=== PATIENT | male | born 1980 | race Caucasian/White ===

== ENCOUNTER → 2016-06-06 | Outpatient (CLI) | payer MEDICAID ==
--- NOTE | 2016-06-06 15:28 | MR ---
EXAMINATION TYPE: MR lumbar spine wo con DATE OF EXAM: 06/06/2016 3:18 PM COMPARISON: NONE HISTORY: Low back pain include T10 through order. Chronic right-sided low back pain per patient. TECHNIQUE: Multiplanar, multisequence imaging of the lumbar spine is performed without IV contrast. FINDINGS: Sagittal images of the lumbar spine show vertebral body heights and alignment to appear sat isfactory. There is disc desiccation with mild disc space narrowing L4-L5 and moderate disc space alverto rowing L5-S1 levels. Increased signal posterior lesions consistent with annular tears is present at t hese levels with small posterior disc herniation seen on sagittal images. The conus medullaris is nor mal in position and signal ending at mid L1 vertebral body level. The bone marrow signal intensity i s within normal limits. No significant spurring is seen. Imaging is performed to mid T9 vertebral bod y level. Visualized lower thoracic spine is unremarkable. Axial images show the T9-T10, T10-T11, T11-T12, T12-L1, L1-L2, L2-L3, and L3-L4 levels all to appear within normal limits. Axial images at the L4-L5 level show broad-based right paracentral disc protrusion mildly effacing an terolateral thecal sac on axial image 10, bilateral neural foramina are patent. Axial images at L5-S1 level shows central disc protrusion but spinal canal is preserved and bilateral neural foramina are patent. No suspicious retroperitoneal pathology is identified.. IMPRESSION: Some multilevel degenerative changes in the lower lumbar spine at L4-L5 and L5-S1 as deta iled above.
== END ==
LOC: RADMRIMAIN 14:05
PROVIDERS: ATTEND Family Medicine
DX: M51.26 Other intervertebral disc displacement, lumbar region (principal); M51.27 Other intervertebral disc displacement, lumbosacral region
CPT/HCPCS: 72148

== ENCOUNTER → 2017-11-20 | Outpatient (CLI) | payer MEDICAID ==
--- NOTE | 2017-11-20 15:48 | US ---
EXAMINATION TYPE: US abdomen limited DATE OF EXAM: 11/20/2017 COMPARISON: NONE CLINICAL HISTORY: R10.31 Right lower quadrant abd pain. EXAM MEASUREMENTS: Liver Length: 16.5 cm Gallbladder Wall: 0.2 cm CBD: 0.5 cm Right Kidney: 10.8 x 4.7 x 5.1 cm Appendix: 0.4 cm Pancreas: Obscured by bowel gas Liver: wnl Gallbladder: wnl Evidence for sonographic Ortiz's sign: No CBD: wnl Right Kidney: No hydronephrosis or masses seen Within the RLQ, there is a probable lymph node visualized measuring 1.7 x 0.7 x 0.8 cm. Tube like str ucture is visualized in the RLQ, possible normal appearing appendix. IMPRESSION: 1. Abdomen ultrasound as visualized appears unremarkable. 2. Right lower quadrant appendix where visualized is normal. 3. There is a lymph node in the right lower quadrant. Consider mesenteric adenitis within the differe ntial.
== END | disposition home or self-care (01) ==
LOC: RADUSWWP 15:00
PROVIDERS: ATTEND Family Medicine
DX: R10.31 Right lower quadrant pain (principal); Z88.8 Allergy status to other drugs, medicaments and biological substances; Z91.048 Other nonmedicinal substance allergy status
CPT/HCPCS: 76705

== ENCOUNTER 2024-05-30 18:40 | Emergency (ER) | payer MEDICAID ==
[2024-05-30 19:05] VITALS: TEMP 98.9
[2024-05-30] MEDS: HYDROmorphone 1 MG/ML 1 ML SYRINGE IM STA ×2 (19:30→20:30)
--- NOTE | 2024-05-30 19:34 | XR ---
EXAMINATION TYPE: XR tibia fibula LT DATE OF EXAM: 05/30/2024 7:31 PM COMPARISON: None CLINICAL INDICATION: Male, 43 years old with history of Injury; PHH, pain TECHNIQUE: XR tibia fibula LT; examined in AP and lateral projections. FINDINGS: No evidence of any acute osseous pathology, joint dislocation, or soft tissue swelling is n oted. IMPRESSION: No evidence of acute fracture. [facility], , 05/30/2024 7:32 PM
--- NOTE | 2024-05-30 19:35 | XR ---
EXAMINATION TYPE: XR ankle complete LT DATE OF EXAM: 05/30/2024 7:27 PM COMPARISON: None CLINICAL INDICATION: Male, 43 years old with history of Injury; PHH, pain TECHNIQUE: XR ankle complete LT; frontal, lateral and oblique projections. FINDINGS: There is no evidence of acute osseous pathology. No evidence of subluxation or dislocation. Kager's fat pad is intact. Soft tissues are within normal limits. No radiopaque foreign bodies are identified . IMPRESSION: No evidence of acute fracture. [facility], , 05/30/2024 7:32 PM
--- NOTE | 2024-05-30 20:03 | ED ---
Lower Extremity Injury HPI - General Chief Complaint: Extremity Injury, Lower Stated Complaint: L leg injury Time Seen by Provider: 05/30/24 19:01 Source: patient, RN notes reviewed Mode of arrival: ambulatory Limitations: no limitations - History of Present Illness Initial Comments: This is a 43-year-old male who presents to the emergency department for left ankle pain. Patient was playing basketball and went up to shoot the ball, and he developed sudden pain in his left ankle, causing him to fall to the ground. He was able to limp on it, but states that it is very painful. States that it almost felt like he got kicked in the back of his ankle. He is unable to bend his foot. Denies hitting his head or sustaining any other injuries. - Related Data Previous Rx's Medication Instructions Recorded HYDROcodone/APAP 7.5-325MG [Anderson 1 tab PO Q4H PRN 3 Days #18 tab 05/30/24 7.5-325] Ibuprofen [Motrin] 800 mg PO Q8H PRN #30 tab 05/30/24 Allergies Allergy/AdvReac Type Severity Reaction Status Date / Time naproxen Allergy Rash/Hives Verified 05/30/24 19:05 iodine AdvReac Rash/Hives Verified 05/30/24 19:05 Review of Systems ROS Statement: Those systems with pertinent positive or pertinent negative responses have been documented in the HPI. ROS Other: All systems not noted in ROS Statement are negative. Past Medical History Past Medical History: No Reported History History of Any Multi-Drug Resistant Organisms: None Reported Additional Past Surgical History / Comment(s): hernia Past Psychological History: No Psychological Hx Reported Smoking Status: Current every day smoker Past Alcohol Use History: Occasional Past Drug Use History: None Reported General Exam Limitations: no limitations General appearance: alert, in no apparent distress Head exam: Present: atraumatic, normocephalic, normal inspection Respiratory exam: Present: normal lung sounds bilaterally. Absent: respiratory distress, wheezes, rales, rhonchi, stridor Cardiovascular Exam: Present: regular rate, normal rhythm, normal heart sounds. Absent: systolic murmur, diastolic murmur, rubs, gallop, clicks Extremities exam: Present: other (Generalized swelling around the left ankle. Patient is unable to plantarflex. Positive Alexander test. 2+ DP and PT pulses) Neurological exam: Present: alert, oriented X3, CN II-XII intact Psychiatric exam: Present: normal affect, normal mood Skin exam: Present: warm, dry, intact, normal color. Absent: rash Course Vital Signs 05/30/24 05/30/24 19:00 20:30 Temperature 98.9 F Pulse Rate 104 H 89 Respiratory 18 16 Rate Blood Pressure 140/65 132/79 O2 Sat by Pulse 97 96 Oximetry Procedures - Orthopedic Splinting/Casting Injury #1 Side: left Lower Extremity Injury Location: ankle Lower Extremity Immobilizer: posterior splint, stirrup splint, fiberglass cast Other Orthopedic Equipment: crutches Medical Decision Making - Medical Decision Making This is a 43-year-old male who presents to the emergency department for left ankle pain. Was pt. sent in by a medical professional or institution? @ -No Did you speak to anyone other than the patient for history? @ -No Did you review nursing and triage notes? @ -Yes, and I agree, it is accurate with regards to the patient's symptoms. Were old charts reviewed? @ -No Differential Diagnosis? @ -Differential Musculoskeletal Muscular strain, contusion, ligament sprain, fracture, arthritis, septic arthritis, bursitis, cellulitis, muscle spasm, nerve compression, DVT, arterial occlusion, herpes zoster, electrolyte abnormality, tumor.... This is not meant to be in all inclusive list EKG interpreted by me (3pts min.)? @ -Not obtained X-rays interpreted by me (1pt min.)? @ -X-ray of the left ankle and tib-fib obtained. My interpretation identifies no acute fractures. CT interpreted by me (1pt min.)? @ -Not obtained U/S interpreted by me (1pt. min.)? @ -Not obtained What testing was considered but not performed? (CT, X-rays, U/S, labs)? Why? @ -None What meds were considered but not given? Why? @ -None Did you discuss the management of the patient with other professionals? @ -No Did you reconcile home meds? @ -No Was smoking cessation discussed for >3mins.? @ -No Was critical care preformed (if so, how long)? @ -No Were there social determinants of health that impacted care today? How? (Homelessness, low income, unemployed, alcoholism, drug addiction, transportation, low edu. Level, literacy, decrease access to med. care, fpc, rehab)? @ -No Was there de-escalation of care discussed even if they declined? (Discuss DNR or withdrawal of care, Hospice)? @ -No What co-morbidities impacted this encounter? (DM, HTN, Smoking, COPD, CAD, Cancer, CVA, Hep., AIDS, mental health diagnosis, sleep apnea, morbid obesity)? @ -None Was patient admitted / discharged? @ -Discharged. X-ray of the left ankle and tib-fib obtained revealing no acute process. Patient was unable to plantarflex on exam and had a positive Alexander test suggestive of an Achilles tendon rupture. Pain was treated in the emergency department. Posterior stirrup splint was applied and he was given crutches. Prescription for ibuprofen and Anderson provided. He was also given information for follow-up with orthopedics and advised to contact them first thing Sunday for a follow-up appointment. Patient discharged home in stable condition. Case discussed with ED attending Dr. Hughes. Return precautions reviewed in depth, the patient is instructed to return to the emergency department with any new, worsening, or concerning symptoms. Patient verbalized understanding. Undiagnosed new problem with uncertain prognosis? @ -None Drug Therapy requiring intensive monitoring for toxicity (Heparin, Nitro, Insulin, Cardizem)? @ -None Were any procedures done? @ -Left posterior stirrup splint application Diagnosis/symptom? @ -Suspected Achilles tendon rupture Acute, or Chronic, or Acute on Chronic? @ -Acute Uncomplicated (without systemic symptoms) or Complicated (systemic symptoms)? @ -Uncomplicated Side effects of treatment? @ -None Exacerbation, Progression, or Severe Exacerbation] @ -Not applicable Poses a threat to life or bodily function? @ -Will limit his ability to ambulate for the meantime Disposition Clinical Impression: Achilles tendon rupture Disposition: HOME SELF-CARE Instructions (If sedation given, give patient instructions): Achilles Tendon Rupture (ED) Additional Instructions: Return to the emergency department with any new, worsening, or concerning symptoms. Alternate with ibuprofen and Tylenol as needed for pain relief. Elevate the leg and ice it. Take the Anderson sparingly when your pain is the most severe. Contact the orthopedic groups first thing Sunday. Let them know that you were seen in the emergency department and have a suspected Achilles tendon rupture. They will schedule you for a follow-up appointment. Prescriptions: Ibuprofen [Motrin] 800 mg PO Q8H PRN #30 tab PRN Reason: Pain HYDROcodone/APAP 7.5-325MG [Anderson 7.5-325] 1 tab PO Q4H PRN 3 Days #18 tab PRN Reason: Pain Is patient prescribed a controlled substance at d/c from ED?: Yes When asked, does pt state using other controlled substances?: No If prescribed controlled substance>3 days was MAPS reviewed?: Prescribed <3 Days Referrals: Nils Moreno Jr, DO [Primary Care Provider] - 1-2 days Kojo Carrasquillo MD [Medical Doctor] - 1-2 days Jesus Ryan MD [STAFF PHYSICIAN] - 1-2 days Time of Disposition: 20:03
[2024-05-30] MEDS: ACET/COD 300 MG/30 MG STARTER PACK 6 TAB BTL PO STA (20:25)
[2024-05-30] MEDS: HYDROcodone/APAP 5-325MG 1 EACH TAB PO STA (20:25)
[2024-05-30] MEDS: ONDANSETRON 4 MG ODT STARTER PACK 2 TAB BTL PO STA (20:25)
[2024-05-30] MEDS: KETOROLAC 15 MG/ML 1 ML VIAL IM STA (20:30)
[2024-05-30 20:33] VITALS: BP 132/79; PULSE 89; RESP 16
== END 2024-05-30 20:47 | disposition home or self-care (01) ==
LOC: EC 18:40
DX: S86.012A Strain of left Achilles tendon, initial encounter (principal); F17.200 Nicotine dependence, unspecified, uncomplicated; Z88.6 Allergy status to analgesic agent; Z88.4 Allergy status to anesthetic agent; W18.30XA Fall on same level, unspecified, initial encounter; Y93.67 Activity, basketball
CPT/HCPCS: 73590; 73610; 99283; 96372; 29515; J1171; S0119